=== PATIENT | male | born 1965 | race Caucasian/White ===

== ENCOUNTER 2019-01-01 17:32 | Emergency (ER) | payer BC ==
[~2019-01-01] VITALS: Ht 180.3 cm; Wt 113.4 kg
[2019-01-01] MEDS ORDERED: HYDR1TAB94 PO (18:48)
== END 2019-01-01 18:58 | disposition home or self-care (01) ==
LOC: ER 17:32
DX: S20.211A Contusion of right front wall of thorax, initial encounter (principal); M25.551 Pain in right hip; W11.XXXA Fall on and from ladder, initial encounter
CPT/HCPCS: 71045; 73502; 99284-25; A9270-GY

== ENCOUNTER 2022-01-11 01:27 | Day surgery (SDC) | payer BC ==
[~2022-01-11 01:27] MED LIST: HYDR1TAB94 PO
== END 2022-01-11 23:23 | disposition home or self-care (01) ==
LOC: WOUND 01:27
DX: L89.892 Pressure ulcer of other site, stage 2 (principal); S81.001D Unspecified open wound, right knee, subsequent encounter
CPT/HCPCS: G0463

== ENCOUNTER 2022-01-19 02:47 | Day surgery (SDC) | payer BC | END 2022-01-19 23:07 | disposition home or self-care (01) | LOC: WOUND 02:47 | DX: L89.892 Pressure ulcer of other site, stage 2 (principal) | CPT/HCPCS: A9270; G0463 ==

== ENCOUNTER 2022-02-01 00:38 | Day surgery (SDC) | payer BC | END 2022-02-01 22:46 | disposition home or self-care (01) | LOC: WOUND 00:38 | DX: L89.892 Pressure ulcer of other site, stage 2 (principal) | CPT/HCPCS: A9270; G0463 ==

== ENCOUNTER 2022-02-15 01:24 | Day surgery (SDC) | payer BC | END 2022-02-15 23:08 | disposition home or self-care (01) | LOC: WOUND 01:24 | DX: L89.892 Pressure ulcer of other site, stage 2 (principal) | CPT/HCPCS: A9270; G0463 ==

== ENCOUNTER 2022-03-01 01:13 | Day surgery (SDC) | payer BC | END 2022-03-01 23:33 | disposition home or self-care (01) | DX: L89.892 Pressure ulcer of other site, stage 2 (principal) ==

== ENCOUNTER 2022-03-15 00:34 | Day surgery (SDC) | payer BC | END 2022-03-15 23:03 | disposition home or self-care (01) | LOC: WOUND 00:34 | DX: L89.892 Pressure ulcer of other site, stage 2 (principal) | CPT/HCPCS: G0463 ==

== ENCOUNTER 2022-04-26 01:05 | Day surgery (SDC) | payer BC | END 2022-04-26 22:52 | disposition home or self-care (01) | LOC: WOUND 01:05 | DX: L89.892 Pressure ulcer of other site, stage 2 (principal); S81.001D Unspecified open wound, right knee, subsequent encounter; X58.XXXD Exposure to other specified factors, subsequent encounter | CPT/HCPCS: G0463 ==

== ENCOUNTER → 2022-12-03 | Outpatient (CLI) | payer BC ==
[~2022-12-03] MED LIST changes: +CEPH500 PO
[2022-12-04 12:48] LABS: Stool Occult Bld Immuno 1 Negative (NEGATIVE)
== END ==
LOC: LAB 14:43 → LAB SHORT 14:43
PROVIDERS: Physician Assistant
DX: Z12.11 Encounter for screening for malignant neoplasm of colon (principal)
CPT/HCPCS: G0328

== ENCOUNTER 2024-10-11 01:37 | Day surgery (SDC) | payer BC ==
[2024-10-11] MEDS ORDERED: Lidocaine HCl 4% Cream 5 GM ONE (07:58)
== END 2024-10-11 23:00 | disposition home or self-care (01) ==
LOC: WOUND 01:37
DX: M70.41 Prepatellar bursitis, right knee (principal); E66.01 Morbid (severe) obesity due to excess calories; Z82.49 Family history of ischemic heart disease and other diseases of the circulatory system
CPT/HCPCS: A6213; A9270; G0463

== ENCOUNTER 2024-10-23 01:03 | Day surgery (SDC) | payer BC | END 2024-10-23 22:53 | disposition home or self-care (01) | LOC: WOUND 01:03 | DX: S81.001A Unspecified open wound, right knee, initial encounter (principal); X58.XXXA Exposure to other specified factors, initial encounter; M70.41 Prepatellar bursitis, right knee; E66.01 Morbid (severe) obesity due to excess calories; Z82.49 Family history of ischemic heart disease and other diseases of the circulatory system | CPT/HCPCS: A6213 ==

== ENCOUNTER 2024-10-29 00:46 | Day surgery (SDC) | payer BC | END 2024-10-29 23:00 | disposition home or self-care (01) | LOC: WOUND 00:46 | DX: T81.89XA Other complications of procedures, not elsewhere classified, initial encounter (principal); M70.41 Prepatellar bursitis, right knee; E66.01 Morbid (severe) obesity due to excess calories; Z82.49 Family history of ischemic heart disease and other diseases of the circulatory system; Y83.8 Other surgical procedures as the cause of abnormal reaction of the patient, or of later complication, without mention of misadventure at the time of the procedure | CPT/HCPCS: A6213 ==

== ENCOUNTER 2024-11-05 01:09 | Day surgery (SDC) | payer BC | END 2024-11-05 23:00 | disposition home or self-care (01) | LOC: WOUND 01:09 | DX: T81.31XD Disruption of external operation (surgical) wound, not elsewhere classified, subsequent encounter (principal); M70.41 Prepatellar bursitis, right knee; E66.01 Morbid (severe) obesity due to excess calories; Z68.41 Body mass index [BMI] 40.0-44.9, adult; Z82.49 Family history of ischemic heart disease and other diseases of the circulatory system | CPT/HCPCS: A6213; G0463 ==

== ENCOUNTER 2024-11-12 00:51 | Day surgery (SDC) | payer BC | END 2024-11-12 23:00 | disposition home or self-care (01) | LOC: WOUND 00:51 | DX: T81.31XA Disruption of external operation (surgical) wound, not elsewhere classified, initial encounter (principal); M70.41 Prepatellar bursitis, right knee; E66.01 Morbid (severe) obesity due to excess calories; Z68.41 Body mass index [BMI] 40.0-44.9, adult; Z82.49 Family history of ischemic heart disease and other diseases of the circulatory system | CPT/HCPCS: A6213 ==

== ENCOUNTER 2024-11-26 00:23 | Day surgery (SDC) | payer BC | END 2024-11-26 23:22 | disposition home or self-care (01) | LOC: WOUND 00:23 | DX: T81.31XA Disruption of external operation (surgical) wound, not elsewhere classified, initial encounter (principal); M70.41 Prepatellar bursitis, right knee; E66.01 Morbid (severe) obesity due to excess calories; Z68.41 Body mass index [BMI] 40.0-44.9, adult; Z82.49 Family history of ischemic heart disease and other diseases of the circulatory system | CPT/HCPCS: A6213 ==

== ENCOUNTER 2024-12-10 01:34 | Day surgery (SDC) | payer BC | END 2024-12-10 23:00 | disposition home or self-care (01) | LOC: WOUND 01:34 | DX: T81.31XA Disruption of external operation (surgical) wound, not elsewhere classified, initial encounter (principal); M70.41 Prepatellar bursitis, right knee; E66.01 Morbid (severe) obesity due to excess calories; Z68.41 Body mass index [BMI] 40.0-44.9, adult; Z82.49 Family history of ischemic heart disease and other diseases of the circulatory system | CPT/HCPCS: A6213 ==

== ENCOUNTER 2024-12-24 01:25 | Day surgery (SDC) | payer BC | END 2024-12-24 22:00 | disposition home or self-care (01) | LOC: WOUND 01:25 | DX: T81.31XA Disruption of external operation (surgical) wound, not elsewhere classified, initial encounter (principal); M70.41 Prepatellar bursitis, right knee; E66.01 Morbid (severe) obesity due to excess calories; Z68.41 Body mass index [BMI] 40.0-44.9, adult; Z82.49 Family history of ischemic heart disease and other diseases of the circulatory system | CPT/HCPCS: A6213 ==

== ENCOUNTER 2024-12-31 01:32 | Day surgery (SDC) | payer BC | END 2024-12-31 23:00 | disposition home or self-care (01) | LOC: WOUND 01:32 | DX: T81.31XA Disruption of external operation (surgical) wound, not elsewhere classified, initial encounter (principal); M70.41 Prepatellar bursitis, right knee; E66.01 Morbid (severe) obesity due to excess calories; Z68.41 Body mass index [BMI] 40.0-44.9, adult; Z82.49 Family history of ischemic heart disease and other diseases of the circulatory system | CPT/HCPCS: A6213 ==

== ENCOUNTER 2025-01-21 04:24 | Day surgery (SDC) | payer BC | END 2025-01-21 23:18 | disposition home or self-care (01) | LOC: WOUND 04:24 | DX: S81.001A Unspecified open wound, right knee, initial encounter (principal); M70.41 Prepatellar bursitis, right knee | CPT/HCPCS: A6213; G0463 ==

== ENCOUNTER 2025-02-04 00:50 | Day surgery (SDC) | payer BC | END 2025-02-04 23:00 | disposition home or self-care (01) | LOC: WOUND 00:50 | DX: T81.31XA Disruption of external operation (surgical) wound, not elsewhere classified, initial encounter (principal) | CPT/HCPCS: A6213 ==

== ENCOUNTER 2025-02-11 00:32 | Day surgery (SDC) | payer BC | END 2025-02-11 23:03 | disposition home or self-care (01) | LOC: WOUND 00:32 | DX: T81.31XA Disruption of external operation (surgical) wound, not elsewhere classified, initial encounter (principal); M70.41 Prepatellar bursitis, right knee; E66.01 Morbid (severe) obesity due to excess calories; Z68.41 Body mass index [BMI] 40.0-44.9, adult; Z82.49 Family history of ischemic heart disease and other diseases of the circulatory system | CPT/HCPCS: A6213 ==

== ENCOUNTER 2025-02-18 01:05 | Day surgery (SDC) | payer BC | END 2025-02-18 22:00 | disposition home or self-care (01) | LOC: WOUND 01:05 | DX: T81.31XD Disruption of external operation (surgical) wound, not elsewhere classified, subsequent encounter (principal); M70.41 Prepatellar bursitis, right knee; E66.01 Morbid (severe) obesity due to excess calories; Z68.41 Body mass index [BMI] 40.0-44.9, adult; Z82.49 Family history of ischemic heart disease and other diseases of the circulatory system ==

== ENCOUNTER 2025-03-04 07:30 | Day surgery (SDC) | payer BC | END 2025-03-04 23:20 | disposition home or self-care (01) | LOC: WOUND 07:30 | DX: T81.31XD Disruption of external operation (surgical) wound, not elsewhere classified, subsequent encounter (principal); M70.41 Prepatellar bursitis, right knee | CPT/HCPCS: A6213; G0463 ==

== ENCOUNTER 2025-03-18 00:26 | Day surgery (SDC) | payer BC | END 2025-03-18 23:00 | disposition home or self-care (01) | LOC: WOUND 00:26 | DX: T81.31XA Disruption of external operation (surgical) wound, not elsewhere classified, initial encounter (principal); M70.41 Prepatellar bursitis, right knee; E66.01 Morbid (severe) obesity due to excess calories; Z68.41 Body mass index [BMI] 40.0-44.9, adult; Z82.49 Family history of ischemic heart disease and other diseases of the circulatory system | CPT/HCPCS: A6213 ==